=== PATIENT | male | born 1960 | race Caucasian/White ===

== ENCOUNTER 2016-04-24 09:57 | Outpatient (CLI) | payer BC, OTHER ==
[2016-04-24 12:29] LABS: Bilirubin Negative (Negative); Blood, Urine Negative (Negative); Glucose, Urine (Dipstick) Negative (Negative); Ketone, Urine Negative (Negative); Nitrite Negative (Negative); Protein, Urine (Dipstick) Negative (Neg-Trace); Urobilinogen 0.2 mg/dL (0.2-1.0)
[2016-04-24 12:35] LABS: ALT (SGPT) 32 U/L (0-55); AST (SGOT) 25 U/L (5-34); Alkaline Phosphatase 71 U/L (40-150); Anion Gap 15 mmol/L (10-20); BUN (Urea Nitrogen) 15 mg/dL (8.4-25.7); Bilirubin, Total 0.5 mg/dL (0.2-1.2); Calc. Creatinine Clearance 0 mL/min (70-130); Calcium 9.3 mg/dL (7.8-10.44); Carbon Dioxide 25 mmol/L (22-29); Chloride 106 mmol/L (98-107); Estimated GFR-MDRD 78; Globulin 2.8 g/dL (2.4-3.5); LDL Cholesterol, Calculated 144 mg/dL; Protein, Total 7.3 g/dL (6.0-8.3)
[2016-04-24 13:47] LABS: Anisocytosis SLIGHT = 6-15 cells (100X) (0-5/hpf); Band 4 % (5-11); Hematocrit 55.4 % (42.0-52.0); Macrocytosis SLIGHT = 6-15 cells (100X) (0-5/hpf); Mean Platelet Volume 8.3 fL (7.4-10.4); Neutrophil 58 % (42-75); Red Blood Cell (RBC) Count 5.31 mill/uL (4.70-6.10); White Blood Cell (WBC) Count 7.2 thou/uL (4.8-10.8)
== END 2016-04-24 09:58 ==
LOC: NAVSJIPCSP 09:57
PROVIDERS: ATTEND Internal Medicine
DX: Z12.5 Encounter for screening for malignant neoplasm of prostate (principal); E78.5 Hyperlipidemia, unspecified
CPT/HCPCS: 36415; 80053; 80061; 81003; 85025; G0103

== ENCOUNTER 2023-10-15 10:13 | Outpatient (CLI) | payer OTHER | END 2023-10-15 10:14 | disposition home or self-care (01) | LOC: NAV RAD 10:13 | PROVIDERS: ATTEND Student in an Organized Health Care Education/Training Program | DX: M54.12 Radiculopathy, cervical region (principal) | CPT/HCPCS: 72040 ==